=== PATIENT | male | born 1975 | race Caucasian/White ===

== ENCOUNTER → 2022-02-21 | Outpatient (CLI) | payer SELFPAY | END | disposition home or self-care (01) | LOC: RESCLI 15:55 | PROVIDERS: ATTEND Internal Medicine | DX: E11.9 Type 2 diabetes mellitus without complications (principal); M54.40 Lumbago with sciatica, unspecified side; F41.9 Anxiety disorder, unspecified; Z90.49 Acquired absence of other specified parts of digestive tract; Z98.890 Other specified postprocedural states; F17.200 Nicotine dependence, unspecified, uncomplicated; Z72.89 Other problems related to lifestyle; Z79.899 Other long term (current) drug therapy ==

== ENCOUNTER → 2022-02-24 | Outpatient (CLI) | payer SELFPAY ==
[2022-02-24 09:13] LABS: BASO # 0.1 10*3/uL (0.0-0.1); BASO % 0.8 % (0.0-1.0); EOS # 0.8 10*3/uL (0.0-0.4); EOS % 6.9 % (1.0-4.0); HEMATOCRIT 48.9 % (42.0-52.0); LYMPH # 3.1 10*3/uL (1.3-4.4); LYMPH % 25.9 % (27.0-41.0); MEAN CORPUSCULAR HGB 32.8 pg (27.0-31.0); MEAN CORPUSCULAR HGB CONC 34.6 g/dl (33.0-37.0); MEAN PLATELET VOLUME 9.9 fl (9.6-12.3); MONO % 8.6 % (3.0-9.0); NEUT # 6.9 10*3/uL (2.3-7.9); NEUT % 57.5 % (47.0-73.0); PLATELET COUNT AUTOMATED 285 10*3/uL (130-400); RED BLOOD COUNT 5.15 10*6/uL (4.50-5.90); RED CELL DISTRI WIDTH 11.9 % (0-14.5); WHITE BLOOD COUNT 12.1 10*3/uL (4.8-10.8)
[2022-02-24 09:32] LABS: CHLORIDE 109 mmol/L (98-107); POTASSIUM 4.5 mmol/L (3.5-5.1); SODIUM 140 mmol/L (136-145)
[2022-02-24 09:43] LABS: ALKALINE PHOSPHATASE 72 U/L (45-117); BUN 23 mg/dl (7-24); CHOLESTEROL 117 mg/dL (<200); CREATININE 0.77 mg/dL (0.70-1.30); LDL CHOLESTEROL 43 mg/dL (9-159); SGOT/AST 23 IU/L (3-35); SGPT/ALT 51 U/L (12-78); TOTAL PROTEIN 7.5 gm/dL (6.4-8.2); TRIGLYCERIDES 146 mg/dl (<150)
[2022-02-25 10:07] LABS: MICRO ALBUMIN/CRE RATIO <4 (0-29)
== END | disposition home or self-care (01) ==
LOC: LAB 08:10
PROVIDERS: ATTEND Internal Medicine
DX: E11.9 Type 2 diabetes mellitus without complications (principal); M54.50 Low back pain, unspecified

== ENCOUNTER 2022-03-10 19:29 | Emergency (ER) | payer MEDICAID ==
[~2022-03-10] VITALS: Ht 182.8 cm; Wt 124.7 kg
[2022-03-10] MEDS ORDERED: EFFEXOR XR75 M1 PO (20:10)
[2022-03-10] MEDS ORDERED: MEDROL DOSEPAK4 MG PO (21:09)
[2022-03-10] MEDS ORDERED: CYCLOBENZAPRINE10 MG PO (21:09)
== END 2022-03-10 21:20 | disposition home or self-care (01) ==
LOC: ED 19:29
DX: S39.012A Strain of muscle, fascia and tendon of lower back, initial encounter (principal); X50.1XXA Overexertion from prolonged static or awkward postures, initial encounter; Y93.89 Activity, other specified; Y92.89 Other specified places as the place of occurrence of the external cause; Y99.9 Unspecified external cause status

== ENCOUNTER → 2022-03-10 | Outpatient (CLI) | payer MEDICAID ==
[~2022-03-10] MED LIST: CYCLOBENZAPRINE10 MG PO; EFFEXOR XR75 M1 PO; MEDROL DOSEPAK4 MG PO
== END | disposition home or self-care (01) ==
LOC: RAD 11:48
PROVIDERS: ATTEND Student in an Organized Health Care Education/Training Program
DX: M47.816 Spondylosis without myelopathy or radiculopathy, lumbar region (principal); M25.78 Osteophyte, vertebrae; M48.061 Spinal stenosis, lumbar region without neurogenic claudication; I87.8 Other specified disorders of veins; Z90.49 Acquired absence of other specified parts of digestive tract

== ENCOUNTER → 2022-04-08 | Outpatient (CLI) | payer MEDICAID | END | disposition home or self-care (01) | LOC: MRI 09:00 | PROVIDERS: ATTEND Internal Medicine | DX: M51.37 Other intervertebral disc degeneration, lumbosacral region (principal); M48.061 Spinal stenosis, lumbar region without neurogenic claudication; M43.16 Spondylolisthesis, lumbar region ==

== ENCOUNTER 2022-04-18 01:22 | Emergency (ER) | payer MEDICAID ==
[~2022-04-18] VITALS: Ht 185.4 cm; Wt 129.3 kg
[2022-04-18] MEDS ORDERED: NEURONTIN300 MG PO (01:32)
[2022-04-18] MEDS ORDERED: HORIZANT300 M1 PO (01:32)
[2022-04-18] MEDS ORDERED: CYCLOBENZAPRINE10 MG PO (02:29)
[2022-04-18] MEDS ORDERED: IBU800 M2 PO (02:29)
[2022-04-18] MEDS ORDERED: PERCOCET 5-3251 EACH PO (02:29)
[2022-04-18] MEDS ORDERED: PREDNISONE20 M1 PO (08:20)
[2022-04-18] MEDS ORDERED: LIDODERM1 EACH T (08:20)
[2022-04-18] MEDS ORDERED: NEURONTIN800 MG PO (08:20)
== END 2022-04-18 02:39 | disposition home or self-care (01) ==
LOC: ED 01:22
DX: M54.41 Lumbago with sciatica, right side (principal); M54.42 Lumbago with sciatica, left side; Z87.891 Personal history of nicotine dependence